=== PATIENT | male | born 1980 | race Caucasian/White ===

== ENCOUNTER 2018-02-25 09:59 | Emergency (ER) | payer OTHER ==
[~2018-02-25] VITALS: Ht 175.3 cm; Wt 138.0 kg
[2018-02-25 10:20] VITALS: BP 147/85; PULSE 103; TEMP 98.6; O2SAT 97
[2018-02-25] MEDS ORDERED: ALPR1TAB3 PO (10:30)
[2018-02-25] MEDS ORDERED: ELVI1TAB3 PO (10:30)
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
[2018-02-25 15:56] VITALS: BP 135/73; PULSE 97; RESP 16; TEMP 97.9; O2SAT 98
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
--- NOTE | 2018-02-25 17:24 | PD ---
Physical Exam Time Seen by Provider: 17:23 Narrative ALANNA Steiner has evaluated the patient, lifted the Greene act and cleared the patient for discharge. Data Data Last Documented VS Vital Signs Date Time Temp Pulse Resp B/P (MAP) Pulse Ox O2 Delivery O2 Flow Rate FiO2 02/25/18 15:56 97.9 97 16 135/73 (93) 98 Room Air Orders Orders Diet Regular Basic (02/25/18 Lunch) Psych Screen (02/25/18 11:48) Diet Regular Basic (02/25/18 Dinner) MDM Supervised Visit with [facility]: No Narrative Course ALANNA Steiner has evaluated the patient, lifted the Greene act and cleared the patient for discharge. Patient contracts safety. Denies suicidal or homicidal ideations. Patient will be provided community resource packet to /EDI for follow-up. Has friends and family for support. Patient was medically cleared by alternate provider prior to psych screening. Patient has been evaluated by psychiatry and and is now cleared for discharge. Diagnosis Primary Impression: Adjustment disorder Qualified Codes: F43.20 - Adjustment disorder, unspecified Referrals: EDI (Out patient) [facility] Primary Care Physician Psychiatrist Maricel DALEY Behavioral Patient Instructions: General Instructions, Mood Disorders (ED) Additional Instruction: Contract safety to your self and others Follow-up with psychiatry Follow-up with primary care provider Follow-up with Kody Stevens Return to the emergency department immediately with worsening of symptoms Med/Other Pt SpecificInfo: No Change to Meds, No Meds Exist/No RX given Disposition: 01 DISCHARGE HOME Condition: Stable Shannon Peralta Feb 25, 2018 17:24
== END 2018-02-25 18:58 | disposition home or self-care (01) ==
LOC: NEPJ 09:59
DX: F43.23 Adjustment disorder with mixed anxiety and depressed mood (principal); F43.10 Post-traumatic stress disorder, unspecified; F31.9 Bipolar disorder, unspecified; Z21 Asymptomatic human immunodeficiency virus [HIV] infection status; M19.072 Primary osteoarthritis, left ankle and foot
CPT/HCPCS: 99284